=== PATIENT | male | born 1955 | race Caucasian/White ===

== ENCOUNTER 2020-09-26 08:19 | Emergency (ER) | payer MEDICARE, BC ==
--- NOTE | 2020-09-26 08:47 | EDM.PDOC ---
ED HPI GENERAL MEDICAL PROBLEM - General Chief Complaint: Lower Extremity Injury/Pain Stated Complaint: RIGHT KNEE AND CALF PAIN Time Seen by Provider: 09/26/20 08:38 Source of Information: Reports: Patient History Limitations: Reports: No Limitations - History of Present Illness INITIAL COMMENTS - FREE TEXT/NARRATIVE: 65-year-old male with 1 week of right lower leg swelling and calf tenderness. First noted last Sunday while sitting in a [place]. Had been complaining of discomfort in the right knee climbing in and out of the boat for several weeks before while duck hunting. No previous injury or history of DVT. Denies any difficulty breathing, shortness of breath, wheezing, chest pain, nausea, vomiting, fever or other symptoms. Not anticoagulated. Very active. No history of cancer. Denies other symptoms or concerns. Right Knee Pain Score (Numeric/FACES): 10 - Related Data Allergies Allergy/AdvReac Type Severity Reaction Status Date / Time Penicillins Allergy Cannot Verified 11/03/18 06:58 Remember Home Meds: Home Meds Lisinopril 10 mg PO DAILY 11/03/18 [History] atorvaSTATin [Lipitor] 20 mg PO DAILY 09/26/20 [History] Past Medical History Cardiovascular History: Reports: Hypertension Musculoskeletal History: Reports: Fracture Social & Family History - Tobacco Use Tobacco Use Status *Q: Never Tobacco User - Caffeine Use Caffeine Use: Reports: Coffee - Recreational Drug Use Recreational Drug Use: No Review of Systems - Review of Systems Review Of Systems: Comprehensive ROS is negative, except as noted in HPI. ED EXAM, GENERAL - Physical Exam Exam: See Below Exam Limited By: No Limitations General Appearance: Alert, WD/WN, No Apparent Distress Head: Atraumatic, Normocephalic Respiratory/Chest: No Respiratory Distress Cardiovascular: Normal Peripheral Pulses, Regular Rate, Rhythm Peripheral Pulses: 2+: Dorsalis Pedis (R) GI/Abdominal: Soft, Non-Tender, No Distention Back Exam: Normal Inspection, Full Range of Motion Extremities: Normal Range of Motion, Pedal Edema, Other (Right lower leg from foot to knee, negative Homans' sign. Mild right calf tenderness) Neurological: Alert, Oriented, Normal Gait, No Motor/Sensory Deficits Psychiatric: Normal Affect, Normal Mood Skin Exam: Warm, Dry, Intact, Normal Color, No Rash Course - Vital Signs Last Recorded V/S: Last Vital Signs Temp 96.8 F L 09/26/20 08:33 Pulse 68 09/26/20 08:33 Resp 16 09/26/20 08:33 BP 143/94 H 09/26/20 08:33 Pulse Ox 98 09/26/20 08:33 - Orders/Labs/Meds Orders: Active Orders 24 hr Category Date Time Status Duplex Lwr Ext Veins Ltd Rt [US] Stat Exams 09/26/20 08:42 Taken - Radiology Interpretation Free Text/Narrative:: Duplex US right lower leg preliminary report negative for DVT. Positive for Bakers cyst. Departure - Departure Time of Disposition: 10:10 Disposition: Home, Self-Care 01 Preliminary Cause of *Q: Cardiac Arrest Condition: Good Clinical Impression: Right leg swelling, Bakers cyst - Discharge Information Instructions: Edema, Garcia Cyst Referrals: Lin Patel MD [Primary Care Provider] - Forms: ED Department Discharge Additional Instructions: Schedule a follow-up appointment with your primary care doctor in the next week for further evaluation of right lower leg swelling. Keep leg elevated when not active. Wear a knee-high tube sock to help provide some compression and decrease swelling. Monitor for any worsening symptoms such as fever, pain, or skin changes. Sepsis Event Note (ED) - Evaluation Sepsis Screening Result: No Definite Risk - Focused Exam Vital Signs: Vital Signs Temp Pulse Resp BP Pulse Ox 09/26/20 08:33 96.8 F L 68 16 143/94 H 98 - My Orders Last 24 Hours: My Active Orders 09/26/20 08:42 Duplex Lwr Ext Veins Ltd Rt [US] Stat - Assessment/Plan Last 24 Hours: My Active Orders 09/26/20 08:42 VL Duplex Lwr Ext Veins Ltd Rt [US] Stat Assessment:: 65-year-old male with unilateral right lower leg swelling without DVT seen on ultrasound today. Symptoms present 1 week. There is a noted Garcia's cyst on examination. No evidence of cellulitis. He mechanically stable. Afebrile. Recommendations are further outpatient follow-up for unilateral edema of the lower extremity in the next 1 to 2 weeks. Advised on use of a light knee-high compressive sock like a tube sock and elevation of the leg when not active. Advised to seek immediate medical attention with any rapidly worsening symptoms or concerns. Medically stable. Discharge home. Plan: Follow-up with your primary care doctor in 1 to 2 weeks for further assessment of this unilateral leg swelling Wear a compressive stocking such as a knee-high tube sock to help decrease swelling. Elevate leg when not active. Monitor for any worsening symptoms such as fever, worsening swelling, pain or skin changes. Seek immediate medical attention with any rapidly worsening symptoms or concerns. Consider repeat ultrasound imaging of the leg in 1 week via primary care doctor.
--- NOTE | 2020-09-27 09:50 | US ---
VL Duplex Lwr Ext Veins Ltd Rt INDICATION: LEG SWELLING FINDINGS: Ultrasound examination of the lower extremity using Doppler and compressive technique demonstrates that the common femoral, femoral, and popliteal veins are patent, and negative for thrombus. The calf veins were segmentally visualized and are negative where seen. There is a 4.8 x 1.3 x 2.9 cm popliteal cyst IMPRESSION: Negative for deep venous thrombosis. Garcia's cyst
== END 2020-09-26 10:44 | disposition home or self-care (01) ==
LOC: JP.ED 08:19
DX: M71.21 Synovial cyst of popliteal space [Baker], right knee (principal); I10 Essential (primary) hypertension; Z88.0 Allergy status to penicillin; Z79.899 Other long term (current) drug therapy
CPT/HCPCS: 93971-26; 93971-RT; 99283-25